=== PATIENT | female | born 1980 | race Hispanic/Latino ===

== ENCOUNTER 2020-10-05 03:07 | Emergency (ER) | payer BC ==
[~2020-10-05] VITALS: Ht 162.6 cm; Wt 86.2 kg
[2020-10-05] MEDS ORDERED: SODIUM CHLORIDE 0.9% 1000ML 1,000 ML IV STA (03:35)
[2020-10-05] MEDS ORDERED: ZOFRAN4 MG PO (03:40)
[2020-10-05] MEDS ORDERED: ACETAMINOPHEN-1 EAC4 PO (03:40)
[2020-10-05] MEDS ORDERED: IBUPROFEN IB200 MG PO (03:40)
[2020-10-05] MEDS ORDERED: CEFDINIR300 MG PO (03:40)
[2020-10-05] MEDS ORDERED: ONDANSETRON HCL INJ 2MG/ML 2ML 2 MG/ML VIAL ONE (03:45)
[2020-10-05] MEDS ORDERED: KETOROLAC TROMETHAMINE 30 MG/ML VIAL ONE (03:45)
[2020-10-05] MEDS ORDERED: SODIUM CHLORIDE 0.9% 1000ML 1,000 ML ONE (03:45)
[2020-10-05] MEDS ORDERED: KETOROLAC TROMETHAMINE 30 MG/ML VIAL IV ONE (03:45)
[2020-10-05] MEDS ORDERED: ONDANSETRON HCL INJ 2MG/ML 2ML 2 MG/ML VIAL IV ONE (03:45)
[2020-10-05] MEDS ORDERED: FLOMAX0.4 MG PO (04:18)
== END 2020-10-05 04:20 | disposition home or self-care (01) ==
LOC: FSED 03:36
DX: N13.2 Hydronephrosis with renal and ureteral calculous obstruction (principal)
CPT/HCPCS: 74176; 80048; 80076; 81003; 85025; 96374; 96376; 99284; J1885; J2405; J7030